=== PATIENT | male | born 1945 | race Caucasian/White ===

== ENCOUNTER → 2017-03-22 | Outpatient (CLI) | payer MEDICARE, OTHER | END | disposition home or self-care (01) | LOC: HKI 10:56 | DX: M54.41 Lumbago with sciatica, right side (principal); E66.01 Morbid (severe) obesity due to excess calories; E11.9 Type 2 diabetes mellitus without complications; I10 Essential (primary) hypertension; E78.00 Pure hypercholesterolemia, unspecified; M10.9 Gout, unspecified; Z96.642 Presence of left artificial hip joint | CPT/HCPCS: 73502 ==

== ENCOUNTER 2017-06-01 05:24 | Inpatient (IN) | payer MEDICARE, OTHER ==
[2017-06-01 06:55] LABS: ADD UMIC NO; UR ASCORBIC ACID NEGATIVE (NEGATIVE); UR BILIRUBIN (Dip) NEGATIVE (NEGATIVE); UR BLOOD (Dip) NEGATIVE (NEGATIVE); UR CLARITY CLEAR (CLEAR); UR COLOR YELLOW (YELLOW); UR GLUCOSE (Dip) 3+ mg/dL (NEGATIVE); UR KETONES (Dip) NEGATIVE (NEGATIVE); UR LEUKOCYTE ESTERASE (Dip) NEGATIVE Leu/ul (NEGATIVE); UR NITRITE (Dip) NEGATIVE (NEGATIVE); UR TOTAL PROTEIN (Dip) NEGATIVE (NEGATIVE); UR UROBILINOGEN (Dip) NEGATIVE (NEGATIVE)
[2017-06-01 07:08] LABS: INR 0.83; PROTIME 11.5 Sec (11.9-14.9); PT RATIO 0.9
[2017-06-01 07:09] LABS: PARTIAL THROMBOPLASTIN TIME 28.1 Sec (25.0-35.0)
[2017-06-01] MEDS ORDERED: LIDOCAINE 100 MG SYRINGE (07:23)
[2017-06-01] MEDS ORDERED: PROPOFOL 20 ML (07:23)
[2017-06-01] MEDS ORDERED: FENTAnyl 50 MCG/ML VIAL ×2 (07:23→08:35)
[2017-06-01] MEDS ORDERED: SUCCINYLCHOLINE CHLORIDE 100 MG/5 ML SYG IV (07:24)
[2017-06-01] MEDS ORDERED: ROCURONIUM 50 MG INJ (07:24)
[2017-06-01] MEDS ORDERED: MIDAZOLAM 1 MG/ML 2 ML INJ (07:31)
[2017-06-01] MEDS ORDERED: METOPROLOL 5 MG INJ (08:36)
[2017-06-01] MEDS ORDERED: HEPARIN 1000 UNITS/ML 10 ML INJ (08:47)
[2017-06-01] MEDS ORDERED: PHENYLephrine (100 MCG/ML) 5ML SYG (09:06)
[2017-06-01] MEDS ORDERED: ONDANSETRON 4 MG INJ (09:15)
[2017-06-01] MEDS ORDERED: METOCLOPRAMIDE 10 MG INJ (09:16)
[2017-06-01] MEDS ORDERED: ONDANSETRON 4 MG INJ IV ×2 (09:30→10:30)
[2017-06-01] MEDS ORDERED: morphine 2 MG INJ IV (09:30)
[2017-06-01] MEDS ORDERED: HYDROCODONE/APAP (10/325) TAB PO (09:30)
[2017-06-01] MEDS ORDERED: OXYCODONE/ACETAMINOPHEN (5/325) TAB PO (09:30)
[2017-06-01] MEDS ORDERED: SUGAMMADEX SODIUM 200 MG/2 ML VIAL IV (09:40)
[2017-06-01] MEDS ORDERED: hydrALAzine 20 MG INJ (09:41)
[2017-06-01] MEDS: GELATIN SIZE 100 SPONGE (09:43)
[2017-06-01] MEDS: HEPARIN 1000 UNITS/ML 10 ML INJ (09:43)
[2017-06-01] MEDS: LIDOCAINE 1% (MPF) 30 ML INJ (09:43)
[2017-06-01] MEDS: THROMBIN 5000 UNIT VIAL (09:43)
[2017-06-01] MEDS ORDERED: DEXTROSE 50% 50 ML SYRINGE IV ×2 (10:00)
[2017-06-01] MEDS ORDERED: GLUCOSE GEL 15 GRAM TUBE BUCCAL (10:00)
[2017-06-01] MEDS ORDERED: GLUCOSE GEL 15 GRAM TUBE PO ×2 (10:00)
[2017-06-01] MEDS ORDERED: GLUCAGON 1 MG INJ IM (10:00)
[2017-06-01] MEDS ORDERED: LABETALOL HCL 20MG INJ (10:01)
[2017-06-01] MEDS: LABETALOL HCL 20MG INJ IV (10:18)
[2017-06-01] MEDS ORDERED: hydrALAzine 20 MG INJ IV (10:30)
[2017-06-01] MEDS ORDERED: METOCLOPRAMIDE 10 MG INJ IV (10:30)
[2017-06-01] MEDS ORDERED: DIPHENHYDRAMINE 50 MG INJ IV (10:30)
[2017-06-01] MEDS ORDERED: HYDROmorphONE (0.2 MG/ML) 10ML SYG IV ×2 (10:30)
[2017-06-01] MEDS ORDERED: FENTAnyl 50 MCG/ML VIAL IV ×2 (10:30)
[2017-06-01] MEDS ORDERED: IPRATROPIUM (NEB) 0.5 MG/2.5 ML AMP HHN (10:30)
[2017-06-01] MEDS ORDERED: MEPERIDINE 25 MG INJ IV (10:30)
[2017-06-01] MEDS: CEFAZOLIN 1 GM/50 ML (PMX) 50 ML IVPB ×2 (10:43→17:31)
[2017-06-01] MEDS: ASPIRIN (EC) 81 MG TAB PO (11:07)
[2017-06-01] MEDS: CHOLECALCIFEROL 1,000 UNIT TAB PO (11:09)
[2017-06-01] MEDS: LINAGLIPTIN 5 MG TABLET PO (11:09)
[2017-06-01] MEDS: niCARdipine 50 MG in SOD CHLORIDE 0.9% 480 ML IV ×2 (11:36→20:36)
[2017-06-01] MEDS: POTASSIUM CHLORIDE 40 MEQ, CALCIUM CHLORIDE 10% 1 GM in DEXTROSE 5%-0.225% NACL 1,000 ML IV (11:39)
[2017-06-01] MEDS: DOCUSATE SODIUM 100 MG CAP PO ×2 (13:27→20:36)
[2017-06-01] MEDS: glyBURIDE 5 MG TAB PO (17:32)
[2017-06-01] MEDS: ALLOPURINOL 100 MG TAB PO (20:36)
[2017-06-01] MEDS: ATORVASTATIN 40 MG TAB PO (20:36)
[2017-06-01] MEDS: metFORMIN 850 MG TAB PO (22:00)
[2017-06-02] MEDS: CEFAZOLIN 1 GM/50 ML (PMX) 50 ML IVPB (01:02)
[2017-06-02] MEDS: POTASSIUM CHLORIDE 40 MEQ, CALCIUM CHLORIDE 10% 1 GM in DEXTROSE 5%-0.225% NACL 1,000 ML IV (02:38)
[2017-06-02] MEDS: niCARdipine 50 MG in SOD CHLORIDE 0.9% 480 ML IV (04:29)
[2017-06-02 06:22] LABS: ADD MAN DIFF? NO
[2017-06-02 06:29] LABS: BASOPHIL # 0.1 10^3/ul (0.0-0.1); BASOPHILS % 0.5 % (0.0-2.0); EOSINOPHILS # 0.1 10^3/ul (0.0-0.5); EOSINOPHILS % 0.9 % (0.0-7.0); HEMATOCRIT 43.4 % (42.0-52.0); HEMOGLOBIN 14.1 g/dl (14.0-18.0); LYMPHOCYTES # 1.2 10^3/ul (0.8-2.9); LYMPHOCYTES % 10.6 % (15.0-51.0); MEAN CORPUSCULAR HEMOGLOBIN 29.3 pg (29.0-33.0); MEAN CORPUSCULAR HGB CONC 32.5 g/dl (32.0-37.0); MEAN CORPUSCULAR VOLUME 90.2 fl (82.0-101.0); MEAN PLATELET VOLUME 10.9 fl (7.4-10.4); MONOCYTE # 1.2 10^3/ul (0.3-0.9); MONOCYTES % 10.6 % (0.0-11.0); NEUTROPHILS % 76.7 % (39.0-77.0); PLATELET COUNT 301 10^3/UL (140-415); RED BLOOD COUNT 4.81 10^6/ul (4.70-6.10); RED CELL DISTRIBUTION WIDTH 14.7 % (11.5-14.5)
[2017-06-02 06:29] LABS: WHITE BLOOD COUNT 11.7 10^3/ul (4.8-10.8)
[2017-06-02 07:00] LABS: ANION GAP 14 (8-16); BLOOD UREA NITROGEN 20 mg/dl (7-20); CALCIUM 9.2 mg/dl (8.4-10.2); CARBON DIOXIDE 26 mmol/L (21-31); CHLORIDE 109 mmol/L (97-110); CREATININE 1.44 mg/dl (0.61-1.24); GLUCOSE 142 mg/dl (70-220); POTASSIUM 4.4 mmol/L (3.5-5.1); SODIUM 145 mmol/L (135-144)
[2017-06-02] MEDS: metFORMIN 850 MG TAB PO (08:21)
[2017-06-02] MEDS: ALLOPURINOL 100 MG TAB PO (08:22)
[2017-06-02] MEDS: LOSARTAN 50 MG TAB PO (08:22)
[2017-06-02] MEDS: glyBURIDE 5 MG TAB PO (08:22)
[2017-06-02] MEDS: METOPROLOL (XL) 50 MG TAB PO (08:23)
[2017-06-02] MEDS: ASPIRIN (EC) 81 MG TAB PO (08:23)
[2017-06-02] MEDS: DOCUSATE SODIUM 100 MG CAP PO (08:23)
[2017-06-02] MEDS ORDERED: TAMSULOSIN (SR) 0.4 MG CAP PO (21:00)
== END 2017-06-02 12:50 | disposition home or self-care (01) | DRG 39 ==
LOC: SDS 05:24 → REC 09:34 → ICU 14:28
PROC: 03CL0ZZ Extirpation of Matter from Left Internal Carotid Artery, Open Approach (ICD-10-PCS; principal; 2017-06-01 07:30)
PROC: 3E0 Administration, Physiological Systems and Anatomical Regions, Introduction (ICD-10-PCS; 2017-06-01 07:30)
DX: I65.22 Occlusion and stenosis of left carotid artery (principal); Z86.73 Personal history of transient ischemic attack (TIA), and cerebral infarction without residual deficits
CPT/HCPCS: 80048; 81003; 82962; 85025; 85610; 85730; 87081; 88304; 88311